=== PATIENT | female | born 1945 | race Caucasian/White ===

== ENCOUNTER 2018-06-01 11:45 | Emergency (ER) | payer OTHER ==
[~2018-06-01] VITALS: Ht 165.1 cm; Wt 60.0 kg
[~2018-06-01 11:45] MED LIST: GABA100C14 PO; LORA-441 PO; OMEP20CA16 PO
--- NOTE | 2018-06-01 12:30 | ERD ---
ER Documentation Chief Complaint Chief Complaint HPI This 72-year-old female with history of osteoporosis who presents for mechanical fall which happened 3 days ago she endorses diffuse bilateral lower back pain, she denies any abdominal pain, no vomiting, no fever. She has been taking Tylenol for the pain, she has not had any bowel bladder incontinence, no lower extremity weakness. ROS All systems reviewed and are negative except as per history of present illness. Medications Home Meds Active Scripts Lorazepam* (Ativan*) 0.5 Mg Tablet, 0.5 MG PO Q8H PRN for ANXIETY, #10 TAB Prov:TREE PAULA MD 10/15/15 Reported Medications Omeprazole* (Omeprazole*) 20 Mg Capsule.dr, 20 MG PO DAILY, #30 CAP 10/15/15 Gabapentin* (Gabapentin*) 100 Mg Capsule, 100 MG PO TID, #90 CAP 10/15/15 Allergies Allergies: Coded Allergies: No Known Allergy (Unverified , 10/15/15) PMhx/Soc History of Surgery: No Anesthesia Reaction: No Hx Neurological Disorder: No Hx Respiratory Disorders: No Hx Cardiac Disorders: Yes (HTN) Hx Psychiatric Problems: Yes (ANXIETY) Hx Miscellaneous Medical Probl: No Hx Alcohol Use: No Hx Substance Use: No Hx Tobacco Use: No Physical Exam Physical Exam Const: No acute distress Head: Atraumatic Eyes: Normal Conjunctiva ENT: Normal External Ears, Nose and Mouth. Neck: Full range of motion. No meningismus. Resp: Clear to auscultation bilaterally Cardio: Regular rate and rhythm, no murmurs Abd: Soft, non tender, non distended, no pulsatile masses. Normal bowel sounds Skin: No petechiae or rashes Back: No midline or flank tenderness. There is diffuse tenderness to the lower lumbar spine, there is no flank tenderness, there is no midline tenderness or step-off Ext: No cyanosis, or edema Neur: Awake and alert Psych: Normal Mood and Affect Procedures/MDM This is a 72-year-old female presents for evaluation of a mechanical fall, with pain to her lower back. Patient's spine symptoms have stabilized while they have been evaluated in the department and are appropriate for outpatient work up. No evidence of cauda equina, cord compression, infiltrative, or infectious etiology. X-ray LS-Spine 3V Interpreted by me: Bones: No fracture, or lytic lesions Joints: No dislocation Foreign body: None Departure Diagnosis: Primary Impression: Back pain Back pain location: low back pain Chronicity: unspecified Back pain laterality: unspecified Sciatica presence: unspecified whether sciatica present Qualified Codes: M54.5 - Low back pain Condition: Stable Patient Instructions: Back Pain (Acute Or Chronic) KEVIN MEADE MD Jun 01, 2018 12:30
[2018-06-01 13:58] VITALS: BP 133/79; PULSE 66; RESP 16; Ht 165.1 cm; Wt 60.0 kg
== END 2018-06-01 14:06 | disposition home or self-care (01) ==
LOC: FTE 11:45
DX: M54.5 Low back pain (principal); I10 Essential (primary) hypertension
CPT/HCPCS: 72100; Z7502